=== PATIENT | female | born 1955 | race Caucasian/White ===

== ENCOUNTER 2018-06-26 11:27 | Emergency (ER) | payer OTHER ==
[~2018-06-26 11:27] MED LIST: AMLO-98 PO; AMLODIPINE PO; ATR10 PO; CEP500 PO; ESTR0.4513 PO; FAM20 PO; IBU800 PO; LIPITOR PO; LOR5/325 PO; LOR7.5/325 PO; OND4 PO; PHENA200 PO; PREMARIN PO
--- NOTE | 2018-06-26 11:29 | ER Report ---
History and Physical Time Seen By MD: 11:29 HPI/ROS CHIEF COMPLAINT: Dizziness and right ear pressure HISTORY OF PRESENT ILLNESS: Patient is a 62-year-old female who presents to the emergency department for evaluation of sinus pressure dizziness pressure to the right ear along with some sore throat and postnasal drip. Symptoms have been present for almost 2 weeks now. She denies any fevers or chills. She denies chest pain or shortness of breath. She denies nausea vomiting or diarrhea. REVIEW OF SYSTEMS: ENT: sore throat right ear pressure. Respiratory: No cough, no dyspnea. Cardiovascular: No chest pain, no palpitations. Gastrointestinal: No vomiting, no abdominal pain. Musculoskeletal: No back pain. Allergies: Coded Allergies: No Known Drug Allergies (Verified , 06/26/18) Home Meds Active Scripts Meclizine Hcl (MECLIZINE HCL) 25 Mg Tablet, 25 MG PO Q6H for vertigo, #20 TAB 0 Refills Prov:JESUS ALBERTO SANABRIA MD 06/26/18 Amoxicillin/Pot Clav 875-125 Mg Tab (AUGMENTIN 875-125 TABLET) 1 Each Tablet, 1 TAB PO Q12H for 10 Days, #20 TAB 0 Refills Prov:JESUS ALBERTO SANABRIA MD 06/26/18 Reported Medications Lysine (L-LYSINE) 500 Mg Tablet, 500 MG PO 06/26/18 Atorvastatin (Lipitor) 10 Mg Tab, 10 MG PO QAM, 0 Refills 05/09/11 Amlodipine Besylate (Amlodipine Besylate) 10 Mg Tablet, 10 MG PO QAM, 0 Refills 05/09/11 Discontinued Reported Medications Acetaminophen/Hydrocodone (Lortab 5/325 Mg) 5 Mg/325 Mg Tab, 1 TAB PO Q6H PRN, #30 0 Refills 05/09/11 Phenazopyridine Hcl (Pyridium) 200 Mg Tab, 200 MG PO TID PRN, #30 0 Refills 05/09/11 Ibuprofen (Motrin) 800 Mg Tab, 600 MG PO TID PRN, #50 0 Refills 05/11/11 Famotidine (Pepcid) 20 Mg Tab, 20 MG PO BID, #20 0 Refills 05/09/11 Cephalexin Monohydrate (Keflex) 500 Mg Cap, 500 MG PO BID, #50 0 Refills 05/09/11 Estrogens,Conjugated (Premarin) 0.45 Mg Tablet, 0.45 MG PO QDAY, 0 Refills 05/09/11 Ondansetron Hcl (Zofran) 4 Mg Tab, 4 MG PO Q6-8H PRN, 0 Refills 05/09/11 Past Medical/Surgical History Hypertension; hypercholesterolemia Hx Substance Use Disorder: No Constitutional Vital Sign - Last 24 Hours 06/26/18 06/26/18 06/26/18 06/26/18 11:30 11:34 11:36 12:00 Temp 97.9 Pulse ??? 94 95 Resp 16 11 B/P (MAP) 150/92 (111) 150/92 144/94 (111) Pulse Ox 90 88 O2 Delivery Room Air 06/26/18 06/26/18 06/26/18 12:30 13:00 13:10 Pulse 89 88 Resp 19 21 B/P (MAP) 152/79 (103) 140/83 (102) 138/80 (99) Pulse Ox 86 86 Physical Exam General/Constitutional: Patient is awake, alert, nontoxic and in no acute respiratory distress. Head: Normocephalic and atraumatic. Eyes: Conjunctival clear, Pupils are equal and reactive to light. Extraocular muscles are intact and symmetrical. Sclera are clear and anicteric. Ears:External canals are clear. Tympanic membranes are clear with normal landmarks and light reflex. Decreased transillumination of left and right maxillary sinus Nares: No rhinorrhea or bleeding. Turbinates are pink and moist. Oropharyngeal: Mucous membranes are moist. There is no pharyngeal erythema or exudate. There are no palatal petechiae. Uvula is midline and symmetrical. Neck: Supple, no adenopathy. Cardiovascular: Heart is regular rate and rhythm without audible murmurs, rubs or gallops. Pulmonary: Lungs are clear to auscultation bilaterally. There are no wheezes, rales, or rhonchi. Chest rise is symmetrical Abdomen: Soft, nontender, no guarding or peritoneal signs. Extremities: No gross deformities, No peripheral cyanosis. Able to move all 4 extremities. Neuro: Alert and oriented X3, Cranial nerves 2 thru 12 are intact and symmetrical. Patient has normal gait. No dysdiadochokinesis, no ataxia noted on exam normal heel to marte normal finger to nose normal confrontation test Skin: No rashes, skin is warm dry and well perfused. Medical Decision Making Data Points Result Diagram: 06/26/18 1210 06/26/18 1210 Laboratory Hematology Test 06/26/18 11:47 06/26/18 12:10 Whole Blood Glucose 124 mg/DL (75-110) Red Blood Count 5.92 M/uL (4.17-5.56) Mean Corpuscular Volume 93.7 fL (80.0-96.0) Mean Corpuscular Hemoglobin 31.4 pg (26.0-33.0) Mean Corpuscular Hemoglobin Concent 33.6 g/dL (32.0-36.0) Red Cell Distribution Width 13.7 % (11.5-14.5) Mean Platelet Volume 8.6 fL (7.2-11.1) Neutrophils (%) (Auto) 68.3 % (39.4-72.5) Lymphocytes (%) (Auto) 22.4 % (17.6-49.6) Monocytes (%) (Auto) 6.3 % (4.1-12.4) Eosinophils (%) (Auto) 1.8 % (0.4-6.7) Basophils (%) (Auto) 1.2 % (0.3-1.4) Nucleated RBC Relative Count (auto) 0.1 /100WBC Neutrophils # (Auto) 7.1 K/uL (2.0-7.4) Lymphocytes # (Auto) 2.3 K/uL (1.3-3.6) Monocytes # (Auto) 0.7 K/uL (0.3-1.0) Eosinophils # (Auto) 0.2 K/uL (0.0-0.5) Basophils # (Auto) 0.1 K/uL (0.0-0.1) Nucleated RBC Absolute Count (auto) 0.01 K/uL Sodium Level 140 mmol/L (137-145) Potassium Level 3.4 mmol/L (3.5-5.0) Chloride Level 107 mmol/L (98-107) Carbon Dioxide Level 21 mmol/L (22-31) Blood Urea Nitrogen 13 mg/dl (7-18) Creatinine 0.70 mg/dl (0.52-1.04) Glomerular Filtration Rate Calc > 60.0 Random Glucose 127 mg/dl (75-110) Calcium Level 9.5 mg/dl (8.4-10.2) Total Bilirubin 0.8 mg/dl (0.2-1.3) Aspartate Amino Transf (AST/SGOT) 42 U/L (0-35) Alanine Aminotransferase (ALT/SGPT) 63 U/L (0-56) Alkaline Phosphatase 179 U/L (0-126) Total Protein 7.9 g/dl (6.3-8.2) Albumin 4.5 g/dl (3.5-5.0) Chemistry Test 06/26/18 11:47 06/26/18 12:10 Whole Blood Glucose 124 mg/DL (75-110) White Blood Count 10.4 k/uL (4.5-11.0) Red Blood Count 5.92 M/uL (4.17-5.56) Hemoglobin 18.6 g/dL (12.0-16.0) Hematocrit 55.5 % (34.0-47.0) Mean Corpuscular Volume 93.7 fL (80.0-96.0) Mean Corpuscular Hemoglobin 31.4 pg (26.0-33.0) Mean Corpuscular Hemoglobin Concent 33.6 g/dL (32.0-36.0) Red Cell Distribution Width 13.7 % (11.5-14.5) Platelet Count 269 K/uL (150-450) Mean Platelet Volume 8.6 fL (7.2-11.1) Neutrophils (%) (Auto) 68.3 % (39.4-72.5) Lymphocytes (%) (Auto) 22.4 % (17.6-49.6) Monocytes (%) (Auto) 6.3 % (4.1-12.4) Eosinophils (%) (Auto) 1.8 % (0.4-6.7) Basophils (%) (Auto) 1.2 % (0.3-1.4) Nucleated RBC Relative Count (auto) 0.1 /100WBC Neutrophils # (Auto) 7.1 K/uL (2.0-7.4) Lymphocytes # (Auto) 2.3 K/uL (1.3-3.6) Monocytes # (Auto) 0.7 K/uL (0.3-1.0) Eosinophils # (Auto) 0.2 K/uL (0.0-0.5) Basophils # (Auto) 0.1 K/uL (0.0-0.1) Nucleated RBC Absolute Count (auto) 0.01 K/uL Glomerular Filtration Rate Calc > 60.0 Calcium Level 9.5 mg/dl (8.4-10.2) Total Bilirubin 0.8 mg/dl (0.2-1.3) Aspartate Amino Transf (AST/SGOT) 42 U/L (0-35) Alanine Aminotransferase (ALT/SGPT) 63 U/L (0-56) Alkaline Phosphatase 179 U/L (0-126) Total Protein 7.9 g/dl (6.3-8.2) Albumin 4.5 g/dl (3.5-5.0) EKG/Imaging Imaging FACILITY: [facility] - [place] PATIENT NAME: Jamia Matthews : 1955 MR: [id number] V: [id number] EXAM DATE: ORDERING PHYSICIAN: JESUS ALBERTO SANABRIA TECHNOLOGIST: Location: [facility] [place] Patient: Jamia Matthews : 1955 Visit/Account:[id number] Date of Sevice: 06/26/2018 EXAMINATION: CT Head without intravenous contrast HISTORY: Dizziness. TECHNIQUE: Axial images were obtained from the skull base to the vertex without intravenous contrast. Sagittal and coronal reformatted images are also submitted. One of the following dose optimization techniques was utilized in the performance of this exam: Automated exposure control; adjustment of the mA and/or kV according to the patient's size; or use of an iterative reconstruction technique. Specific details can be referenced in the facility's radiology CT exam operational policy. COMPARISON: None available. FINDINGS: Brain volume: Normal. Ventricles: Negative. Acute ischemic changes: None. Hemorrhage: None. Masses / edema: None. Hardin-white: Negative. White matter: Moderate to severe chronic white matter disease, nonspecific but most likely representing chronic microvascular ischemia. Vessels: Negative. Extra-axial: Negative. Calvarium / skull base: Questionable focal skin thickening versus something external to the patient overlying the right posterior calvarium (axial image 40; sagittal image 8; coronal image 92). Visualized sinuses / orbits: Rightward nasal septal deviation. IMPRESSION: 1. No acute intracranial abnormality. 2. Moderate to severe chronic white matter disease, nonspecific but most likely representing chronic microvascular ischemia. 3. Questionable focal skin thickening versus something external to the patient overlying the right posterior calvarium (axial image 40; sagittal image 8; coronal image 92). Direct inspection of this region is recommended to exclude malignancy. Report Dictated By: Devendra Arredondo MD at 06/26/2018 12:39 PM Report E-Signed By: Devendra Arredondo MD at 06/26/2018 12:45 PM WSN:[id number] ED Course/Re-evaluation ED Course 06/26/2018 1:05:31 pm he scan shows chronic sinus disease, there is also a highlight of signal on the right posterior scalp seen on image 40 that was concerning for possible malignancy. Scalp is examined patient has a seborrheic keratosis to the area in question. Patient was instructed to continue with her dental appointment this following week. We will prescribe oral Augmentin as well as meclizine to treat symptoms. Decision to Disposition Date: Jun 26, 2018 Decision to Disposition Time: 13:07 Depart Departure Latest Vital Signs Vital Signs Date Time Temp Pulse Resp B/P (MAP) Pulse Ox O2 Delivery O2 Flow Rate FiO2 06/26/18 13:10 138/80 (99) 06/26/18 13:00 88 21 86 06/26/18 11:36 97.9 Room Air Impression: Primary Impression: Sinusitis Condition: Improved Disposition: HOME OR SELF-CARE Referrals: CLAUDIA ROSE MD (PCP) New Scripts Meclizine Hcl (MECLIZINE HCL) 25 Mg Tablet 25 MG PO Q6H for vertigo, #20 TAB 0 Refills Prov: JESUS ALBERTO SANABRIA MD 06/26/18 Amoxicillin/Pot Clav 875-125 Mg Tab (AUGMENTIN 875-125 TABLET) 1 Each Tablet 1 TAB PO Q12H for 10 Days, #20 TAB 0 Refills Prov: JESUS ALBERTO SANABRIA MD 06/26/18 Patient Instructions: Sinusitis (ED) Additional Instructions: Be sure to tell your dentist that you're currently taking Augmentin for a sinus infection. Problem Qualifiers Primary Impression: Sinusitis Sinusitis location: unspecified location Chronicity: unspecified Qualified Codes: J32.9 - Chronic sinusitis, unspecified JESUS ALBERTO SANABRIA MD Jun 26, 2018 11:29
[2018-06-26] MEDS ORDERED: LYSI500T32 PO (11:35)
--- NOTE | 2018-06-26 12:01 | EKG ---
FACILITY: [facility] PATIENT NAME: MICHAEL GUTIERREZ : [id number] MR: [id number] V: [id number] EXAM DATE: ORDERING PHYSICIAN: JESUS ALBERTO SANABRIA TECHNOLOGIST: FREEMAN Chung Reason : DIZZY Blood Pressure : / mmHG Vent. Rate : 090 BPM Atrial Rate : 090 BPM P-R Int : 166 ms QRS Dur : 098 ms QT Int : 392 ms P-R-T Axes : 061 -27 045 degrees QTc Int : 479 ms Normal sinus rhythm Anterolateral infarct , age undetermined No ST-T abnormalities No previous ECGs available Confirmed by OUMOU CRUZ ([id number]) on 06/26/2018 7:50:53 PM Referred By: ELLY Confirmed By:OUMOU CRUZ
[2018-06-26 12:19] LABS: PLATELET COUNT, AUTOMATED 269 K/uL (150-450)
--- NOTE | 2018-06-26 12:48 | RADIOLOGY IMAGING REPORT ---
FACILITY: [facility] - [place] PATIENT NAME: Jamia Matthews : 1955 MR: [id number] V: [id number] EXAM DATE: ORDERING PHYSICIAN: JESUS ALBERTO SANABRIA TECHNOLOGIST: Location: [facility] Patient: Jamia Matthews : 1955 Visit/Account:[id number] Date of Sevice: 06/26/2018 EXAMINATION: CT Head without intravenous contrast HISTORY: Dizziness. TECHNIQUE: Axial images were obtained from the skull base to the vertex without intravenous contrast . Sagittal and coronal reformatted images are also submitted. One of the following dose optimization techniques was utilized in the performance of this exam: Autom ated exposure control; adjustment of the mA and/or kV according to the patient's size; or use of an i terative reconstruction technique. Specific details can be referenced in the facility's radiology C T exam operational policy. COMPARISON: None available. FINDINGS: Brain volume: Normal. Ventricles: Negative. Acute ischemic changes: None. Hemorrhage: None. Masses / edema: None. Hardin-white: Negative. White matter: Moderate to severe chronic white matter disease, nonspecific but most likely represent ing chronic microvascular ischemia. Vessels: Negative. Extra-axial: Negative. Calvarium / skull base: Questionable focal skin thickening versus something external to the patient overlying the right posterior calvarium (axial image 40; sagittal image 8; coronal image 92). Visualized sinuses / orbits: Rightward nasal septal deviation. IMPRESSION: 1. No acute intracranial abnormality. 2. Moderate to severe chronic white matter disease, nonspecific but most likely representing chronic microvascular ischemia. 3. Questionable focal skin thickening versus something external to the patient overlying the right p osterior calvarium (axial image 40; sagittal image 8; coronal image 92). Direct inspection of this r egion is recommended to exclude malignancy. Report Dictated By: Devendra Arredondo MD at 06/26/2018 12:39 PM Report E-Signed By: Devendra Arredondo MD at 06/26/2018 12:45 PM WSN:[id number]
[2018-06-26] MEDS ORDERED: AMOX-559 PO (13:09)
[2018-06-26] MEDS ORDERED: MECL25TA9 PO (13:09)
[2018-06-26 13:10] VITALS: BP 138/80
== END 2018-06-26 13:18 | disposition home or self-care (01) ==
LOC: ER 11:38
DX: J32.9 Chronic sinusitis, unspecified (principal)
CPT/HCPCS: 36415; 36416; 70450; 82040; 82247; 82310; 82374; 82435; 82565; 82947; 82948; 84075; 84132; 84155; 84295; 84450; 84460; 84520; 85025; 93005; 99284

== ENCOUNTER → 2018-08-20 | Outpatient (CLI) | payer OTHER ==
[~2018-08-20] MED LIST changes: +AMOX-559 PO; +LYSI500T32 PO; +MECL25TA9 PO
--- NOTE | 2018-08-21 11:25 | RADIOLOGY IMAGING REPORT ---
FACILITY: [facility] - [place] PATIENT NAME: MICHAEL GUTIERREZ : [id number] MR: [id number] V: [id number] EXAM DATE: ORDERING PHYSICIAN: CLAUDIA BECERRIL TECHNOLOGIST: Linda Perez PROCEDURE:BILATERAL DIGITAL SCREENING MAMMOGRAM WITH CAD ASSISTED INTERPRETATION & 3D TOMOSYNTHESIS COMPARISON:Prior mammograms dated 06/28/14, 06/16/12 INDICATIONS:SCREENING FINDINGS: The breasts are almost entirely fatty. The parenchymal pattern has remained stable when allowing for difference in mammographic technique & patient positioning. DIAGNOSTIC CATEGORY 1--NEGATIVE. RECOMMENDATIONS: ROUTINE MAMMOGRAM AND CLINICAL EVALUATION. IMPRESSION: BIRADS 1: Negative. No significant abnormality is seen. Dictated by: Kristy Hurtado M.D. on 08/20/2018 at 15:25 Transcribed by: DIXIE on 08/21/2018 at 9:31 Approved by: Kristy Hurtado M.D. on 08/21/2018 at 11:24 [facility]
== END ==
LOC: MAMO 00:38
PROVIDERS: ATTEND Family Medicine
DX: Z12.31 Encounter for screening mammogram for malignant neoplasm of breast (principal)
CPT/HCPCS: 77063; 77067